=== PATIENT | female | born 1955 | race Caucasian/White ===

== ENCOUNTER 2016-07-11 09:55 | Inpatient (IN) | payer OTHER ==
[~2016-07-11] VITALS: Ht 160 cm; Wt 111.1 kg
[2016-07-11 11:12] LABS: HEMOGLOBIN 13.1 gm/dl (12.3-15.3); RED BLOOD COUNT 4.09 M/UL (4.00-5.10); WHITE BLOOD COUNT 15.6 K/UL (4.5-11.0)
[2016-07-11 11:31] LABS: BUN/CREATININE RATIO 18 (0-10)
[2016-07-11] MEDS ORDERED: VITAMIN B-122000 MC1 PO (16:43)
[2016-07-11] MEDS ORDERED: HYDROCHLOROTHIA25 MG PO (16:44)
[2016-07-11] MEDS ORDERED: COZAAR 50MG TAB50 MG PO (16:45)
[2016-07-11] MEDS ORDERED: ZANTAC300 MG PO (16:45)
[2016-07-11] MEDS ORDERED: ZETIA 10 MG TAB10 MG PO (16:46)
[2016-07-11] MEDS ORDERED: GLUCOPHAGE500 MG PO (16:47)
[2016-07-11] MEDS ORDERED: ALLEGRA-D 24 H1 EACH PO (16:47)
[2016-07-11] MEDS ORDERED: LEXAPRO20 MG PO (16:47)
[2016-07-11] MEDS ORDERED: PROVENTIL HFA 61 INH INH (16:48)
[2016-07-11] MEDS ORDERED: HUMULIN R500 UNIT/1 SQ (16:50)
[2016-07-11] MEDS ORDERED: IPRAT-ALBUT 0.5-3 ML INH (16:51)
[2016-07-11] MEDS ORDERED: CINNAMON PLUS1 EACH PO (16:52)
[2016-07-12 05:08] LABS: HEMOGLOBIN 12.8 gm/dl (12.3-15.3); RED BLOOD COUNT 4.05 M/UL (4.00-5.10); WHITE BLOOD COUNT 14.8 K/UL (4.5-11.0)
[2016-07-12 05:24] LABS: BUN/CREATININE RATIO 15 (0-10)
[2016-07-13 05:59] LABS: HEMOGLOBIN 12.5 gm/dl (12.3-15.3); RED BLOOD COUNT 4.03 M/UL (4.00-5.10); WHITE BLOOD COUNT 11.8 K/UL (4.5-11.0)
[2016-07-13 06:19] LABS: BUN/CREATININE RATIO 13 (0-10)
[2016-07-15] MEDS ORDERED: BACTRIM DS TAB1 EACH PO (20:12)
[2016-07-15] MEDS ORDERED: NORCO 5-325 TA1 EACH PO (20:13)
== END 2016-07-15 21:23 | disposition home health service (06) | DRG 603 ==
LOC: ER1 09:55 → PROG CARE 12:39 → MED SURG 4 12:39
PROVIDERS: Emergency Medicine; Physician Assistant Medical; Surgery; ADMIT Internal Medicine Infectious Disease
PROC: 0J9D3ZZ Drainage of Right Upper Arm Subcutaneous Tissue and Fascia, Percutaneous Approach (ICD-10-PCS; principal; 2016-07-14 14:00)
DX: L02.411 Cutaneous abscess of right axilla (principal); Z68.41 Body mass index [BMI] 40.0-44.9, adult; L03.111 Cellulitis of right axilla; E11.9 Type 2 diabetes mellitus without complications; I10 Essential (primary) hypertension; E78.5 Hyperlipidemia, unspecified; E66.01 Morbid (severe) obesity due to excess calories; K21.9 Gastro-esophageal reflux disease without esophagitis; J45.909 Unspecified asthma, uncomplicated; M79.621 Pain in right upper arm; A49.02 Methicillin resistant Staphylococcus aureus infection, unspecified site; E53.8 Deficiency of other specified B group vitamins; Z90.710 Acquired absence of both cervix and uterus; Z98.890 Other specified postprocedural states; Z90.49 Acquired absence of other specified parts of digestive tract; Z88.4 Allergy status to anesthetic agent; Z80.9 Family history of malignant neoplasm, unspecified; Z81.8 Family history of other mental and behavioral disorders; Z79.899 Other long term (current) drug therapy; Z79.4 Long term (current) use of insulin; D72.829 Elevated white blood cell count, unspecified
CPT/HCPCS: 10061; 36415; 76641-RT; 80048; 80053; 82962; 83605; 83735; 85025; 87040; 87070; 87077; 87081; 87186; 87205; 96365; 96375; 96376; 99284; J1335; J1650; J1956; J2250; J2270; J2405; J3370; J7030; J7050; J7070; J7120

== ENCOUNTER 2020-07-02 19:17 | Emergency (ER) | payer OTHER ==
[~2020-07-02 19:17] MED LIST: ALDACTONE50 MG PO; ALLEGRA-D 24 H1 EACH PO; BACTRIM DS TAB1 EACH PO; BUSPIRONE HCL10 MG PO; CINNAMON PLUS1 EACH PO; CLARITIN10 M2 PO; COLLAGEN PO; COZAAR 50MG TAB50 MG PO; COZAAR25 MG PO; GLUCOPHAGE500 MG PO; HUMULIN R500 UNIT/1 SQ; HYDROCHLOROTHIA25 MG PO; IPRAT-ALBUT 0.5-3 ML INH; LEXAPRO20 MG PO; LIPITOR TAB 1010 MG PO; NORCO 5-325 TA1 EACH PO; PANTOPRAZOLE SO40 MG PO; PROVENTIL HFA 61 INH INH; ROPINIROLE HC0.25 MG PO; STEGLATRO15 MG PO; TRAZODONE HCL50 MG PO; TRESIBA100 UNIT/1 SQ; VENTOLIN HFA 66.7 GM INH; VITAMIN B-122000 MC1 PO; VITAMIN B12-FO1 EACH PO; XANAX 0.25 MG0.25 MG PO; ZANTAC300 MG PO; ZETIA 10 MG TAB10 MG PO
[2020-07-02] MEDS ORDERED: CYCLOBENZAPRINE10 MG PO ×2 (21:27→21:49)
== END 2020-07-02 21:54 | disposition home or self-care (01) ==
LOC: ER1 19:17
DX: S86.911A Strain of unspecified muscle(s) and tendon(s) at lower leg level, right leg, initial encounter (principal); S80.12XA Contusion of left lower leg, initial encounter; E11.9 Type 2 diabetes mellitus without complications; Z23 Encounter for immunization; W22.8XXA Striking against or struck by other objects, initial encounter; Y92.009 Unspecified place in unspecified non-institutional (private) residence as the place of occurrence of the external cause
CPT/HCPCS: 72170; 73564; 73590; 90471; 90715; 99283

== ENCOUNTER 2020-11-19 18:30 | Emergency (ER) | payer OTHER ==
[~2020-11-19 18:30] MED LIST changes: +CYCLOBENZAPRINE10 MG PO
== END 2020-11-19 20:17 | disposition home or self-care (01) ==
LOC: ER1 18:30
DX: M79.671 Pain in right foot (principal); E11.9 Type 2 diabetes mellitus without complications
CPT/HCPCS: 73630; 99283

== ENCOUNTER → 2020-11-22 | Outpatient (CLI) | payer OTHER | LOC: HEART 5 08:50 | DX: R06.02 Shortness of breath (principal); I08.3 Combined rheumatic disorders of mitral, aortic and tricuspid valves | CPT/HCPCS: 93306 ==

== ENCOUNTER → 2020-11-29 | Outpatient (CLI) | payer OTHER | LOC: HEART 5 08:00 | DX: R07.9 Chest pain, unspecified (principal); E11.9 Type 2 diabetes mellitus without complications; R06.02 Shortness of breath | CPT/HCPCS: 78452; A9502; J2785 ==

== ENCOUNTER → 2020-12-17 | Outpatient (CLI) | payer OTHER | LOC: KOH-I 08:00 | DX: S86.311A Strain of muscle(s) and tendon(s) of peroneal muscle group at lower leg level, right leg, initial encounter (principal); M77.51 Other enthesopathy of right foot and ankle; M67.471 Ganglion, right ankle and foot | CPT/HCPCS: 73721 ==

== ENCOUNTER → 2020-12-20 | Outpatient (CLI) | payer OTHER ==
[2020-12-20 18:33] LABS: HEMOGLOBIN 14.4 gm/dl (12.3-15.3); RED BLOOD COUNT 4.47 M/UL (4.00-5.10); WHITE BLOOD COUNT 9.1 K/UL (4.5-11.0)
[2020-12-20 19:06] LABS: BUN/CREATININE RATIO 17 (0-10)
== END ==
LOC: LAB 16:54
PROVIDERS: Internal Medicine Interventional Cardiology
DX: R94.39 Abnormal result of other cardiovascular function study (principal); I10 Essential (primary) hypertension; E11.9 Type 2 diabetes mellitus without complications; E78.5 Hyperlipidemia, unspecified; F41.9 Anxiety disorder, unspecified; F32.9 Major depressive disorder, single episode, unspecified; G47.30 Sleep apnea, unspecified; R53.81 Other malaise; R07.9 Chest pain, unspecified; R06.02 Shortness of breath
CPT/HCPCS: 80048; 85025; 85610; 85730; 93005

== ENCOUNTER 2021-01-08 07:00 | Observation (INO) | payer OTHER ==
[~2021-01-08] VITALS: Ht 160 cm; Wt 104.3 kg
[~2021-01-08 07:00] MED LIST changes: -BUSPIRONE HCL10 MG PO; +BUSPIRONE HCL15 MG PO; -GLUCOPHAGE500 MG PO; +METFORMIN HCL500 M2 PO; -ROPINIROLE HC0.25 MG PO; +ROPINIROLE HCL1 MG PO; +ZETIA10 MG PO
[2021-01-08] MEDS ORDERED: ALDACTONE50 MG PO (08:37)
[2021-01-08] MEDS ORDERED: ST. JOSEPH ASPI81 M1 PO (08:38)
[2021-01-08] MEDS ORDERED: ARTHRITIS PAIN50 GM TOP (08:38)
[2021-01-08] MEDS ORDERED: HUMALOG 10100 UNITS/ SC (08:39)
[2021-01-08] MEDS ORDERED: NIZORAL 2% CREA15 GM TOP (08:39)
[2021-01-08] MEDS ORDERED: LEVOTHYROXINE25 MCG PO (08:40)
[2021-01-08] MEDS ORDERED: NITROGLYCERIN0.4 MG SL (08:40)
[2021-01-08] MEDS ORDERED: METOPROLOL TART25 MG PO (08:40)
[2021-01-08] MEDS ORDERED: JARDIANCE25 MG PO (08:41)
[2021-01-08] MEDS ORDERED: ISOSORBIDE MONO30 MG PO (11:59)
[2021-01-08] MEDS ORDERED: VITAMIN B-121000 MCG PO (12:00)
[2021-01-08] MEDS ORDERED: VITAMIN D325 MCG PO (12:01)
[2021-01-09 06:56] LABS: HEMOGLOBIN 14.9 gm/dl (12.3-15.3); RED BLOOD COUNT 4.59 M/UL (4.00-5.10); WHITE BLOOD COUNT 15.7 K/UL (4.5-11.0)
[2021-01-09 07:46] LABS: BUN/CREATININE RATIO 26 (0-10)
== END 2021-01-09 16:53 | disposition home or self-care (01) ==
LOC: CATH 07:00 → MED SURG 4 10:24 → CATH 13:49 → MED SURG 4 13:49
PROVIDERS: Physician Assistant; ADMIT Internal Medicine Interventional Cardiology
DX: I20.8 Other forms of angina pectoris (principal); I10 Essential (primary) hypertension; E11.9 Type 2 diabetes mellitus without complications; F41.9 Anxiety disorder, unspecified; F32.A Depression, unspecified; K21.9 Gastro-esophageal reflux disease without esophagitis; E78.00 Pure hypercholesterolemia, unspecified; E83.52 Hypercalcemia; E87.1 Hypo-osmolality and hyponatremia; G47.00 Insomnia, unspecified; E78.2 Mixed hyperlipidemia; G25.81 Restless legs syndrome; Z88.8 Allergy status to other drugs, medicaments and biological substances; Z79.82 Long term (current) use of aspirin; Z79.4 Long term (current) use of insulin; Z79.899 Other long term (current) drug therapy; Z96.659 Presence of unspecified artificial knee joint; Z98.890 Other specified postprocedural states; Z90.49 Acquired absence of other specified parts of digestive tract
CPT/HCPCS: 80048; 82962; 85025; 85610; 85730; 99152; C1769; G0378; J0171; J1200; J1644; J2250; J2930; J3010; J7030; Q9967

== ENCOUNTER → 2021-01-24 | Outpatient (CLI) | payer OTHER ==
[~2021-01-24] MED LIST changes: +ARTHRITIS PAIN50 GM TOP; +HUMALOG 10100 UNITS/ SC; +ISOSORBIDE MONO30 MG PO; +JARDIANCE25 MG PO; +LEVOTHYROXINE25 MCG PO; +METOPROLOL TART25 MG PO; +NITROGLYCERIN0.4 MG SL; +NIZORAL 2% CREA15 GM TOP; +ST. JOSEPH ASPI81 M1 PO; +VITAMIN B-121000 MCG PO; +VITAMIN D325 MCG PO
== END ==
LOC: MAMO 14:35
DX: N64.4 Mastodynia (principal)
CPT/HCPCS: 76641-RT; 77066; G0279

== ENCOUNTER → 2021-05-02 | Outpatient (CLI) | payer OTHER ==
[2021-05-02 12:10] LABS: HEMOGLOBIN 14.8 gm/dl (12.3-15.3); RED BLOOD COUNT 4.78 M/UL (4.00-5.10); WHITE BLOOD COUNT 9.4 K/UL (4.5-11.0)
== END ==
LOC: MRI 11:18 → KOH-I 13:00
PROVIDERS: Family Medicine
DX: M77.51 Other enthesopathy of right foot and ankle (principal); M67.471 Ganglion, right ankle and foot; R25.3 Fasciculation; M25.571 Pain in right ankle and joints of right foot; M19.071 Primary osteoarthritis, right ankle and foot; M72.2 Plantar fascial fibromatosis; M65.871 Other synovitis and tenosynovitis, right ankle and foot
CPT/HCPCS: 36415; 73721; 83735; 85027

== ENCOUNTER → 2021-10-29 | Outpatient (CLI) | payer OTHER ==
[2021-10-29 14:29] LABS: BUN/CREATININE RATIO 26 (0-10)
[2021-10-30 12:13] LABS: RHEUMATOID ARTHRITIS FACTOR <10.0 IU/mL (<14.0)
== END ==
LOC: LAB 13:19
PROVIDERS: Family Medicine
DX: E78.2 Mixed hyperlipidemia (principal); M79.10 Myalgia, unspecified site
CPT/HCPCS: 36415; 80053; 83735; 84550; 85652; 86038; 86200; 86431

== ENCOUNTER → 2021-10-29 | Outpatient (CLI) | payer OTHER | LOC: KOH-I 09:54 | DX: M25.572 Pain in left ankle and joints of left foot (principal); M25.571 Pain in right ankle and joints of right foot | CPT/HCPCS: 73610; 73630 ==